=== PATIENT | female | born 1995 | race Caucasian/White ===

== ENCOUNTER → 2017-05-05 15:47 | Outpatient (CLI) | payer MEDICAID ==
[2017-05-05 17:46] LABS: APPEARANCE CLEAR (CLEAR); COLOR YELLOW (YELLOW); GLUCOSE NEGATIVE (NEGATIVE); LEUKOCYTE ESTERASE 1+ (NEGATIVE); NITRITE NEGATIVE (NEGATIVE); PROTEIN NEGATIVE (NEGATIVE)
[2017-05-05 17:47] LABS: BILIRUBIN NEGATIVE (NEGATIVE); KETONE NEGATIVE (NEGATIVE); RED CELLS - URINE 0-5 /hpf (0-5); UROBILINOGEN NORMAL (NORMAL)
[2017-05-05 17:48] LABS: BACTERIA MANY /hpf (NONE SEEN); MUCUS <1+ /lpf (NONE SEEN)
== END | disposition home or self-care (01) ==
LOC: D.LDO 15:47
PROVIDERS: Obstetrics & Gynecology
DX: O26.893 Other specified pregnancy related conditions, third trimester (principal); Z3A.35 35 weeks gestation of pregnancy; R10.9 Unspecified abdominal pain

== ENCOUNTER → 2017-05-19 00:52 | Outpatient (CLI) | payer MEDICAID ==
[2017-05-19 01:51] LABS: APPEARANCE CLEAR (CLEAR); BILIRUBIN NEGATIVE (NEGATIVE); COLOR YELLOW (YELLOW); GLUCOSE NEGATIVE (NEGATIVE); KETONE NEGATIVE (NEGATIVE); LEUKOCYTE ESTERASE NEGATIVE (NEGATIVE); NITRITE NEGATIVE (NEGATIVE); PROTEIN NEGATIVE (NEGATIVE); UROBILINOGEN NORMAL (NORMAL)
== END | disposition home or self-care (01) ==
LOC: D.LDO 00:52
PROVIDERS: Obstetrics & Gynecology
DX: O26.893 Other specified pregnancy related conditions, third trimester (principal); Z3A.37 37 weeks gestation of pregnancy

== ENCOUNTER → 2017-05-24 20:51 | Outpatient (CLI) | payer MEDICAID ==
[2017-05-24 21:56] LABS: APPEARANCE HAZY (CLEAR); BILIRUBIN NEGATIVE (NEGATIVE); COLOR YELLOW (YELLOW); GLUCOSE NEGATIVE (NEGATIVE); KETONE MODERATE mg/dL (NEGATIVE); LEUKOCYTE ESTERASE 2+ (NEGATIVE); NITRITE NEGATIVE (NEGATIVE); PROTEIN NEGATIVE (NEGATIVE); SPECIFIC GRAVITY 1.015 (1.005-1.020); UROBILINOGEN NORMAL (NORMAL)
[2017-05-24 21:57] LABS: BACTERIA MANY /hpf (NONE SEEN); MUCUS <1+ /lpf (NONE SEEN); RED CELLS - URINE OCC /hpf (0-5)
== END | disposition home or self-care (01) ==
LOC: D.LDO 20:51
PROVIDERS: Obstetrics & Gynecology
DX: O26.893 Other specified pregnancy related conditions, third trimester (principal); Z3A.38 38 weeks gestation of pregnancy

== ENCOUNTER 2017-05-31 05:11 | Inpatient (IN) | payer MEDICAID ==
[2017-05-31 07:03] LABS: HEMATOCRIT 36.3 % (36.0-48.0); HEMOGLOBIN 12.3 g/dL (12-16); MCH 30.3 pg (26.0-34.0); MCHC 33.9 g/dL (31.0-37.0); MCV 89.4 fL (80.0-100.0); MEAN PLATELET VOLUME 11.7 fL (7.4-10.4); RBC 4.06 10x6/uL (4.00-5.40); RDW 13.1 % (11.5-14.5); WBC 12.5 10x3/uL (4.8-10.8)
[2017-05-31 07:07] VITALS: BP 119/68; BMI 40.5
[2017-05-31] MEDS ORDERED: PRENATAL COMPLE1 TAB PO (07:07)
[2017-05-31 07:09] VITALS: BP 119/68; BMI 40.5
[2017-05-31 07:21] LABS: APPEARANCE HAZY (CLEAR); BILIRUBIN NEGATIVE (NEGATIVE); COLOR YELLOW (YELLOW); GLUCOSE NEGATIVE (NEGATIVE); KETONE NEGATIVE (NEGATIVE); NITRITE NEGATIVE (NEGATIVE); PROTEIN NEGATIVE (NEGATIVE); UROBILINOGEN NORMAL (NORMAL)
[2017-05-31 08:54] LABS: UDS - AMPHET NEGATIVE QUAL (NEGATIVE); UDS - BARB NEGATIVE QUAL (NEGATIVE); UDS - BENZO NEGATIVE QUAL (NEGATIVE); UDS - COCAINE NEGATIVE QUAL (NEGATIVE); UDS - OPIATE NEGATIVE QUAL (NEGATIVE); UDS - PCP NEGATIVE QUAL (NEGATIVE); UDS - THC NEGATIVE QUAL (NEGATIVE)
[2017-06-01] VITALS (15 sets, daily range): BP systolic 104–155; BP diastolic 7–90
--- NOTE | 2017-06-01 01:16 | NUR ---
TABLE GAMES DEALER TO NURSES STATION, REPORTS BEING UNABLE TO FIND FUNDUS. THIS RN TO BESIDE IN RECOVERY ROOM. FUNDUS WITH RIGHT SHIFT, UU WITH NO LOCHIA INITIALLY TO PERIPAD. BLADDER SLIGHTLY DISTENDED, HUTTON UNDER LEFT LEG, BLADDER DRAINED. DR. RAYGOZA RECHECKED, FIRM UU FOLLOWING DRAINING BLADDER.
--- NOTE | 2017-06-01 01:30 | NUR ---
PT TRANSFERRED FROM RECOVERY ROOM TO ROOM 1274. DR. OLIVERA AT BEDSIDE, PALPATING FUNDUS. DR. OLIVERA PERFORMS PELVIC EXAM WITH LARGE AMT RUBRA LOCHIA RETURNED, NO CLOTS.
--- NOTE | 2017-06-01 01:34 | NUR ---
DR. OLIVERA AT REMAINS AT BEDSIDE. B/P ELEVATED, PAIN 9/10 AT THIS TIME. MD AWARE. PERIPAD SATURATED AND CHANGED. TOWELS AND CHUX CHANGE. PERINUM CLEASED, AND CLEAN PERIPAD APPLIED. 450 MLS CLEAR LIGHT YELLOW URINE EMPTIED FROM UROMETER. V/O REC'D TO BOLUS PT WITH LEARNING DISABILITIES TEACHER AT THIS TIME. NS WITH 20 UNITS PIT TO PUMP AT 125 MLS PER HOUR. DILUADAD LEARNING DISABILITIES TEACHER INITIATED WITH 0.4 MG BOLUS GIVEN PER V/O. RESPIRATION REGULAR AND UNLABORED, BREATH SOUNDS CLEAR AND EQUAL. NO BOWEL SOUNDS PRESENT AT THIS TIME. ICE CHIPS GIVEN. FAMILY ALLOWED TO COME TO ROOM TO VISIT WITH PT. PT REQUESTS TO SEE INFANT JESSICA D/T NOT "REMEMBERING SEEING IN OR." PT AND S/O INSTRUCTED ON USE OF LEARNING DISABILITIES TEACHER BUTTON, VERBALIZE UNDERSTANDING. BED IN LOW POSITION WITH UPPER SIDE RAILS RAISED X2. CL AND PHONE WITHIN REACH. WILL CONT TO MONITOR AND ASSIST PRN.
--- NOTE | 2017-06-01 02:05 | NUR ---
ICE CHIPS GIVEN PER PT REQUEST. DEVANG VANEGAS RN TO ROOM WITH FOR BONDING WITH PT. DENIES NEEDS AT THIS TIME. WILL CONT TO MONITOR AND ASSIST PRN. FAMILY MEMBERS AND S/O AT BEDSIDE, ATTENTIVE AND SUPPORTIVE OF PT. BED IN LOW POSITION WITH UPPER SIDE RAILS RAISED X2. EDUCATED PT AND VISITORS ON SAFETY WITH IF PT BEGINS TO FEEL DROWSY OR DIZZY, VERBALIZES UNDERSTANDING AND DENY QUESTIONS. CL AND PHONE WITHIN REACH. WILL CONT TO MONITOR AND ASSIST PRN.
--- NOTE | 2017-06-01 02:43 | NUR ---
RN TO BEDSIDE. 500 MLS CLEAR LIGHT YELLOW URINE EMPTIED FROM HUTTON CATH. FUNDUS FIRM, U1 AND MIDLINE WITH SMALL AMT RUBRA LOCHIA TO PERIPADS. PERICARE DONE. TOWEL, CHUX, AND PERIPAD CHANGED. PAIN 3-4/10 ABD CRAMPING AND SORENESS. PT WITH FULL ROM TO BLE. SCD'S REMAIN ON. SPRITE GIVEN PER REQUEST, TOLERATED ICE CHIPS WELL WITH NO C/O NAUSEA. S/O AND VISITORS AT BEDSIDE, PT CONVERSING WITH THEM AT THIS TIME. DENIES ADDITIONAL NEEDS. BED IN LOW POSITION WITH UPPER SIDE RAILS RAISED X2. CL AND PHONE WITHIN REACH. WILL CONT TO MONITOR AND ASSIST PRN.
--- NOTE | 2017-06-01 03:25 | NUR ---
PT CALLS VIA CL. STATES THAT BED KEEPS JERKING AND GOING UP AND DOWN WHEN SHE HASN'T HIT THE BUTTON, BED NOTED TO SELF ADJUST. PT WITH FULL ROM TO BLE. PT ASSISTED WITH MOVING TO NEW BED BY SCOOTING OVER. WHEN IN NEW BED B/P ELEVATED AT 155/75, PT RATES PAIN AT 7-8/10 FOLLOWING BED TRANSFER. PT USED ENCEPHALOGRAPHER BUTTON. NEW ICE PACK APPLIED TO INCISION. DRSG REMAINS CLEAN, DRY, AND INTACT, NO DRAINAGE NOTED. S/O REMAINS AT BEDSIDE, ATTENTATIVE AND SUPPORTIVE OF PT. S/O PROVIDED WITH LINENS. PERICARE DONE, FUNDUS REMAINS FIRM, U1 WITH MODERATE AMT RUBRA LOCHIA TO PERIPAD, NO CLOTS. BED IN LOW POSITION WITH UPPER SIDE RAILS RAISED X2. CL AND PHONE WITHIN REACH. WILL CONT TO MONITOR B/P AND ASSIST PRN.
--- NOTE | 2017-06-01 03:40 | NUR ---
B/P 135/80, PT RESTING WITH EYES CLOSED AT THIS TIME. RESPIRATIONS REGULAR AND UNLABORED, NO S/S OF DISTRESS NOTED. S/O REMAINS AT BEDSIDE RESTING ON COUCH. BED REMAINS IN LOW POSITION WITH UPPER SIDE RAILS RAISED X2. CL AND PHONE WITHIN REACH. WILL CONT TO MONITOR AND ASSIST PRN.
--- NOTE | 2017-06-01 04:08 | NUR ---
INFANT TO ROOM BY DEVANG MURRY RN. PT ATTEMPTING TO BREAST FEED WITH Janett QUINTANA'S ASSISTANCE. PT DENIES NEEDS AT THIS TIME. WILL CONT TO MONITOR AND ASSIST PRN.
--- NOTE | 2017-06-01 04:58 | NUR ---
RN TO BEDSIDE FOR ROUNDS. PT SITTING IN HIGH FOWLERS POSITION BREAST FEEDING . 550 MLS CLEAR LIGHT YELLOW URINE EMPTIED FROM CATHETER. S/O AT BEDSIDE, SUPPORTIVE AND ATTENTIVE TO PT. PT STATES THAT SHE IS DROWSY, REINFORCED INSTRUCTION ON S/O TAKING IF DROWSY TO STAY AWAKE OR TO NOTIFY RN, BOTH VERBALIZE UNDERSTANDING. NBN RN TO BEDSIDE AT THIS TIME. B/P CUFF REMOVED. PT DENIES NEEDS. WILL CONT TO MONITOR AND ASSIST PRN. BED IN LOW POSITION WITH UPPER SIDE RAILS RAISED X2. CL AND PHONE WITHIN REACH. WILL CONT TO MONITOR AND ASSIST PRN.
--- NOTE | 2017-06-01 06:04 | NUR ---
RN TO BEDSIDE FOR ROUNDS. PT IN HIGH FOWLERS POSITION. TAKEN BACK TO NBN PER PT REQUEST. VSS. PULSE COUNTED MANUALLY, HR: 98. FUNDUS FIRM, U1 WITH SMALL AMT RUBRA LOCHIA TO PERIPAD, NO CLOTS NOTED. PERICARE AND HUTTON CARE DONE. CHUX AND PERIPADS CHANGED. 250 MLS EMPTIED FROM HUTTON, CLEAR LIGHT YELLOW. PAIN 3/10 ABD CRAMPING, STATES SPORTS WRITER IS CONTROLLING PAIN WELL. DRSG TO ABD REMAINS CLEAN, DRY, AND INTACT WITH NO DRAINAGE. INCENTIVE SPIROMETER USED X10 BY PT, COUGH AND DEEP BREATHING DONE WITH GOOD EFFORT. S/O REMAINS AT BEDSIDE, SUPPORTIVE AND ATTENTIVE TO PT. BED IN LOW POSITION WITH UPPER SIDE RAILS RAISED X2. CL AND PHONE WITHIN REACH. WILL CONT TO MONITOR AND ASSIST PRN.
[2017-06-01 07:24] LABS: RAPID PLASMA REAGIN Non Reactive (Non Reactive)
[2017-06-01 07:31] LABS: BASOPHILS 0.1 % (0-2); EOSINOPHILS 0 % (0-7); HEMATOCRIT 30.5 % (36.0-48.0); HEMOGLOBIN 10.5 g/dL (12-16); IMMATURE GRANULOCYTES 0.3 % (0-5); LYMPHOCYTES 7.5 % (15-50); MCH 30.7 pg (26.0-34.0); MCHC 34.4 g/dL (31.0-37.0); MCV 89.2 fL (80.0-100.0); MEAN PLATELET VOLUME 11.6 fL (7.4-10.4); MONOCYTES 6.1 % (2-11); PLATELET COUNT 157 10x3/uL (130-400); RBC 3.42 10x6/uL (4.00-5.40)
[2017-06-01 07:38] LABS: WBC 17.4 10x3/uL (4.8-10.8)
--- NOTE | 2017-06-01 08:00 | NUR ---
THIS RN TO ROOM FOR SHIFT ASSESSMENT. PT IN FOWLERS POSITION, AAOx3. PT RATING PAIN 5/10 AT REST,STATES IT IS WORSE WITH MOVEMENT. FACULTY INSTRUCTOR BUTTON GIVEN TO PT AND PT ENCOURAGED TO USE NEEDED. PT PRESSES FACULTY INSTRUCTOR BUTTON. SHIFT ASSESSMENT COMPLETE, VS OBTAINED, TACHYCARDIA NOTED. SEE FLOWSHEET FOR DOC. PIV INFUSING TO LEFT WRIST IV, C/D/I, NO SIGNS OF PHLEBITIS OR INFILTRATION. OCCLUSIVE ABD DSG OVER LT INCISION C/D/I. FF, ML, U/2. SMALL RUBRA LOCHIA NOTED TO PERIPAD WITHOUT CLOTS, PAD CHANGED. HUTTON CATH DRAINING CLEAR YELLOW URINE TO BEDSIDE DRAINAGE. 400ML EMPTIED FROM UROMETER. SCD'S ON PUMP TO LE BILAT. I.S. AND COUGH/DEEP BREATHING DISCUSSED WITH PT, UNDERSTANDING VERBALIZED AND PT DOES DEEP BREATHING WITH GOOD EFFORT. PT DENIES FEELING DIZZY OR LIGHTHEADED. PT ALSO DENIES NAUSEA AND STATES SHE IS TOLERATING LIQUIDS WELL. PT DENIES PASSING GAS YET. POC DISCUSSED WITH PT. UNDERSTANDING VERBALIZED. PT REQUEST FOR TO BE BROUGHT TO ROOM FOR SKIN TO SKIN WHEN POSSIBLE. WILL CHECK WITH NSY. SRUx2, CL IN REACH.
--- NOTE | 2017-06-01 08:03 | NUR ---
FRESH ICE WATER PROVIDED, NEW ICE PACK TO ABD INCISION.
--- NOTE | 2017-06-01 08:15 | NUR ---
DR OLIVERA PHONED AND REPORT GIVEN. ORDER RECEIVED FOR EKG, CT OF LUNGS TO R/O PE, ONLY ADMIN 1 DOSE OF SCHEDULED PO METHERGINE NOW, AND 30MG TORADOL IV Q6 PRN FOR PAIN. WILL UPDATE PT ON POC.
--- NOTE | 2017-06-01 08:55 | NUR ---
PT UPDATED ON POC AND NEW ORDERS FROM DR OLIVERA. PT VERBALIZES UNDERSTANDING. PO METHERGINE ADMIN ORDERED, WELL TORADOL FOR PAIN. PT RATING PAIN 8/10 WITH MOVEMENT AT THIS TIME. PT ASSISTED TO POSITIONING INFANT TO LATCH FOR BF. PT DENIES FURTHER NEEDS AT THIS TIME. SRUx2, CL IN REACH. FOB AT BEDSIDE.
--- NOTE | 2017-06-01 09:30 | NUR ---
PT C/O "FEELING HOT AND SWEATY". ROOM TEMP DECREASED, COOL CLOTH PROVIDED FOR NECK/FACE. AX TEMP OF 99.O NOTED. PT DENIES SOB. WILL CONT TO MONITOR.
--- NOTE | 2017-06-01 09:34 | NUR ---
PT TO CT VIA BED WITH TRANSPORT/CT STAFF.
--- NOTE | 2017-06-01 10:00 | NUR ---
PT BACK FROM CT VIA BED TO ROOM 1274 AT 0955. VS OBTAINED, SEE FLOWSHEET FOR DOC. 180ML CLEAR YELLOW URINE EMPTIED FROM UROMETER. PT STATES SHE WANTS TO TRY TO TAKE A NAP BEFORE IT IS TIME FOR INFANT TO FEED AGAIN. LIGHTS DIMMED. SRUx2, CL IN REACH. FOB ON BEDSIDE COUCH.
--- NOTE | 2017-06-01 10:13 | NUR ---
PT CALLS OUT SHEET METAL WORKER MAINTENANCE LIGHT REQUESTING INFANT TO ROOM SHE HAS VISITORS. TO ROOM VIA CRIBETTE. NEW BAG PIT HUNG PER ORDER, SEE EMAR FOR DOC. PT DENIES FURTHER NEEDS, STATES SHE IS STARTING TO FEEL COOLER. SRUx2, CL IN REACH. WILL CONT TO MONITOR.
--- NOTE | 2017-06-01 10:56 | NUR ---
CT REP0RT CALLED TO THIS RN FROM [facility] IN [place], REPORT PRINTED. WILL NOTIFY MD OF NO ACUTE FINDINGS.
--- NOTE | 2017-06-01 10:57 | NUR ---
RT PAGED CONCERNING EKG NOT DONE, LUCITA STATES SHE WILL HAVE SOMEONE COME DO IT JESSICA.
--- NOTE | 2017-06-01 11:10 | NUR ---
RT TO ROOM AT THIS TIME FOR EKG.
--- NOTE | 2017-06-01 11:40 | NUR ---
DR OLIVERA PHONED WITH REPORT OF CT AND EKG RESULTS WELL RECENT VITALS AND PAIN RATINGS. DR OLIVERA STATES THAT HE ORDERED 14OO CBC, AND HE WILL AWAIT RESULTS OF THAT TO DETERMINE FURTHER ORDERS. DR OLIVERA STATES SHE MAY CONTINUE TO REST AT THIS TIME, DOES NOT HAVE TO AMBULATE YET DUE TO LATE DELIVERY DURING NIGHT. WILL UPDATE PT ON POC.
--- NOTE | 2017-06-01 11:55 | NUR ---
PT UPDATED ON POC. PT REQUESTING TO EAT. DIET ADVANCED. PT INSTRUCTED TO EAT SLOWLY AND REPORT ANY NAUSEA. PT VERBALIZES UNDERSTANDING. 175ML EMPTIED FROM FOLY CATH, CLEAR YELLOW URINE. LUNCH DELIVERED. PT POSITIONED TO SITTING TO EAT. DENIES NEEDS. SRUx2, CL IN REACH. FAMILY IN ROOM.
--- NOTE | 2017-06-01 12:30 | NUR ---
THIS RN TO ROOM FOR PT CHECK. PT DENIES NAUSEA WITH MEAL, STATES SHE ATE HALF A SANDWICH AND DRANK A SPRITE. PT SMILING, VISITING WITH FAMILY, DENIES NEEDS. Tamra, CL IN REACH.
--- NOTE | 2017-06-01 13:15 | NUR ---
PT CALLS OUT PERSONAL FINANCIAL REPRESENTATIVE LIGHT FOR NURSE. THIS RN TO ROOM. PT STATES HER ICE PACK HAS LEAKED ON HER LINENS AND GOWN. LINENS AND GOWN CHANGED. FF, ML, U/2. SCANT RUBRA LOCHIA WITHOUT CLOTS NOTED. PERICARE DONE, PAD CHANGED. NEW ICE PACK APPLIED TO ABD INCISION. PT STATES PAIN "IS ABOUT THE SAME IT HAS BEEN ALL DAY." PT POSITIONED TO SITTING TO BR , NSY RN TO ROOM AT THIS TIME TO ASSIST WITH LATCH. SRUx2, CL IN REACH. PT ENCOURAGED TO REST AFTER THIS FEEDING.
--- NOTE | 2017-06-01 15:08 | NUR ---
PT CALLS OUT PICKLE SORTER LIGHT FOR NURSE, THIS RN TO ROOM. PT STATES SHE WAS WONDERING WHEN LAB WAS GOING TO COME DRAW HER BLOOD. LAB PHONED AND NOTIFIED OF TIMED ORDER FOR 1400, STATE THEY WILL SEND SOMEONE DOWN. PT INFORMED. 225ML DARK YELLOW URINE EMPTIED FROM UROMETER. PT C/O PAIN BEING "ABOUT THE SAME." PT RATES PAIN 4-5 AT REST, BUT 7-8 WITH MOVEMENT. PT ADMIN PRN TORADOL ORDERED, SEE EMAR FOR DOC. PT ENCOURAGED TO REST, AND THIS RN WILL ASSIST HER WITH AMBULATING WHEN TORADOL HAS PAIN LEVEL LOWER, WITHIN NEXT HOUR. LIGHTS IN ROOM DIMMED. SRUx2, CL IN REACH. FAMILY ON BEDSIDE COUCH. WILL CONT TO MONITOR.
--- NOTE | 2017-06-01 15:11 | NUR ---
LAB STAFF DRAWING LABS AT THIS TIME.
[2017-06-01 15:21] LABS: BASOPHILS 0.1 % (0-2); EOSINOPHILS 0 % (0-7); HEMATOCRIT 28.2 % (36.0-48.0); HEMOGLOBIN 9.5 g/dL (12-16); IMMATURE GRANULOCYTES 0.2 % (0-5); LYMPHOCYTES 6.2 % (15-50); MCH 30.3 pg (26.0-34.0); MCHC 33.7 g/dL (31.0-37.0); MCV 89.8 fL (80.0-100.0); MEAN PLATELET VOLUME 11.2 fL (7.4-10.4); MONOCYTES 6.1 % (2-11); NEUTROPHILS 87.4 % (40-80); PLATELET COUNT 127 10x3/uL (130-400); RBC 3.14 10x6/uL (4.00-5.40); RDW 13.2 % (11.5-14.5); WBC 14.5 10x3/uL (4.8-10.8)
--- NOTE | 2017-06-01 16:15 | NUR ---
DR OLIVERA GIVEN RESULTS FROM ORDERED CBC AND HR, ORDER RECEIVED TO TRANSFUSE [address] OLIVERA STATES TO D/C IV MEDS, COMPLETE TRANSFUSION BEFORE AMBULATING, AND IF TACHYCARDIA HAS NOT RESOLVED, TO CHECK 2 HOUR POST TRANSFUSION CBC. ORDER RECEIVED FOR PO PAIN MEDS NORCO 10/325 PO Q4H PRN, AND IBUPROFEN 600MG PO Q6H PRN. WILL UPDATE PT ON POC.
--- NOTE | 2017-06-01 17:15 | NUR ---
BLOOD TRANSFUSION STARTED AND WITNESSED WITH SHERYL MANTILLA. SEE PAPER TRANSFUSION FLOWSHEET FOR DOC AND VITALS.
--- NOTE | 2017-06-01 17:45 | NUR ---
PT REQUESTS PERICARE. PERICARE DONE, BED PADS AND PERIPADS CHANGED. NEW ICE PACK TO INCISION. PT DENIES FURTHER NEEDS AT THIS TIME. SRUx2, CL IN REACH. FAMILY IN ROOM.
--- NOTE | 2017-06-01 18:25 | NUR ---
PT C/O INCREASING PAIN AT INCISION, PRN PAIN MEDS ADMIN ORDERED, SEE EMAR FOR DOC. FRESH ICE WATER PROVIDED. PT DENIES FURTHER NEEDS, EATING SOME FOOD FROM DINNER TRAY. PT INSTRUCTED TO REPORT ANY NAUSEA, UNDERSTANDING VERBALIZED.
--- NOTE | 2017-06-01 18:47 | NUR ---
THIS RN TO ROOM. HUTTON BAG EMPTIED. PT DENIES ANY NEEDS, SMILING AND VISITING WITH FAMILY. SRUx2, CL IN REACH.
--- NOTE | 2017-06-01 19:20 | NUR ---
AT PRESENT. BLOOD INFUSION COMPLETED. 225CC NOTED IN HUTTON CATH. SCDS ON AND PUMP FUNCTIONAL. IV OF NS USED TO CLEAR IV LINE OF BLOOD. INFORMED PT. WOULD COMPLETE ASSESSMENT WHEN IS COMPLETED.
--- NOTE | 2017-06-01 19:55 | NUR ---
COMPLETED . PT. CHEERFUL. IV TUBING CLEARED OF BLOOD AND IV OF NS CONVERTED TO SALINE LOCK. POC EXPLAINED TO PT. PT. AGREEABLE. BREATH SOUNDS CLEAR AND BOWEL SOUNDS AUDIBLE. VITAL SIGNS OBTAINED.
--- NOTE | 2017-06-01 20:05 | NUR ---
HUTTON CATH. DISCONTINUED WITH 175CC NOTED IN METER. SCDS OFF AND WRAPS OFF PT. LEGS. NO EVIDENCE OF REDNESS NOR C/O PAIN. RATES INCISIONAL PAIN A 4 OF 10. USED INCENTIVE SPIROMETER WITH ENCOURAGEMENT X 3 AND OBTAINED UP TO 1500CC. DEEP BREATHING AND COUGHING DONE. NO REDNESS AT IV SITE. SIDE RAILS UP X 2. INFORMED PT. THAT SHE MUST CALL FOR ASSISTANCE PRIOR TO ATTEMPTING TO AMBULATE. PT. STATED VERBAL UNDERSTANDING.
--- NOTE | 2017-06-01 21:09 | NUR ---
AT PRESENT. CHEERFUL AND DENIES ANY NEEDS. MOVING LEGS ABOUT IN BED. FOB AND VISITOR ON SOFA.
--- NOTE | 2017-06-01 22:31 | NUR ---
LYING IN BED HOLDING . STATES SHE PLANS TO FEED AGAIN AND THEN WOULD LIKE TAKEN TO NBN SO THEY CAN SLEEP UNTIL NEXT FEEDING. SCDS REAPPLIED. FOB LYING ON SOFA. VITAL SIGN ASSESSMENT PERFORMED. PT. RATES PAIN A 4 OF 10 ON PAIN SCALE FOR INCISIONAL PAIN. PAIN MED GIVEN ORDERED. PT. DOES NOT FEEL URGE TO VOID AT THIS TIME.
--- NOTE | 2017-06-01 23:09 | NUR ---
PT. CALLS REQUESTING BE RETURNED TO NBN. RATES PAIN A 3 OF 10 ON PAIN SCALE. FOB SWADDLING INFANT. PT. STATES SHE DESIRES TO SLEEP UNTIL INFANT NEED FED NEXT. AGAIN INSTRUCTED PT. TO CALL FOR ASSISTANCE WHEN SHE DESIRES TO GET UP TO VOID. PT. STATED UNDERSTANDING. SIDE RAILS UP X 2 AND CALL LIGHT WITHIN REACH. SCDS ON AND PUMP FUNCTIONAL.
--- NOTE | 2017-06-02 00:25 | NUR ---
STATES URGE TO VOID.UP TO BATHROOM WITH MINIMAL ASSISTANCE. VOIDED 500CC. DEBORAH PADS AND PANTIES APPLIED. LINENS AND GOWN CHANGED. BACK TO BED. SCDS RECONNECTED TO PUMP AND FUNCTIONAL. ABD. DRESSING DRY AND INTACT. PT. REQUESTING RETURN TO ROOM. FOB LYING ON THE SOFA BUT UP ON PHONE WHEN PT. AMBULATED TO BATHROOM. CALL LIGHT WITHIN REACH AND SIDE RAILS UP X 2.
--- NOTE | 2017-06-02 02:38 | NUR ---
PT RINGS CALL LIGHT REQUESTING PAIN MEDICATION. THIS RN TO BEDSIDE FORPAIN ASSESSMENT. PT REPORTS ABD CRAMPING AND INCISIONAL PAIN. PT REQUEST BOTH MOTRIN AND NORCO AT THIS TIME. NORCO 10/325MG ONE TAB AND MOTRIN 600MG PO GIVEN. PT DENIES FURTHER NEEDS AT THIS TIME.
--- NOTE | 2017-06-02 03:15 | NUR ---
LYING ON BACK WITH EYES CLOSED. RESPIRATIONS REGULAR. FOB SLEEPING ON SOFA.
--- NOTE | 2017-06-02 05:15 | NUR ---
UP TO BATHROOM AND VOIDED 500CC. GAIT STEADY. DEBORAH PADS AND PANTIES APPLIED. BACK TO BED AND SCDS RECONNECTED TO PUMP. REQUESTED TO ROOM. NBN INFORMED.
[2017-06-02 06:56] LABS: BASOPHILS 0.1 % (0-2); EOSINOPHILS 0.3 % (0-7); HEMATOCRIT 28.7 % (36.0-48.0); HEMOGLOBIN 9.6 g/dL (12-16); IMMATURE GRANULOCYTES 0.4 % (0-5); LYMPHOCYTES 12.5 % (15-50); MCH 29.5 pg (26.0-34.0); MCHC 33.4 g/dL (31.0-37.0); MCV 88.3 fL (80.0-100.0); MEAN PLATELET VOLUME 10.9 fL (7.4-10.4); MONOCYTES 6.3 % (2-11); NEUTROPHILS 80.4 % (40-80); PLATELET COUNT 146 10x3/uL (130-400); RBC 3.25 10x6/uL (4.00-5.40); RDW 14.5 % (11.5-14.5); WBC 15.7 10x3/uL (4.8-10.8)
[2017-06-02 07:35] VITALS: BP 116/63
--- NOTE | 2017-06-02 07:45 | NUR ---
ASSESSMENT COMPLETE. SITTING UP IN BED. PAIN MED GIVEN. VERBAL RESPONSES APPRO TO QUESTIONS. STATES THAT UP TO BATHROOM NEEDED. STATES THAT NOT PASSING GAS. ENCOURAGED TO AMBULATE MORE TODAY. FAMILY AT BEDSIDE.
--- NOTE | 2017-06-02 08:05 | NUR ---
DR OLIVERA HERE TO SEE PT.
--- NOTE | 2017-06-02 09:08 | NUR ---
Corine Myers 06/02/17 LE@ 8:30 S: Patient states is going good; baby sometimes tends to fuss when it's time for feeding, making it harder to latch him, and has been using a nipple shield unsure if using correctly. O: Patient sitting up in bed watching television, FOB sleeping on sofa, in nursery. Congratulated on delivery, does take time and patience in the beginning. Explained feeding cues, infant should be fed on demand when showing feeding cues. It is normal for a breastfed to feed every 2-3 hours in the day and 3-4 hours at night, every baby is different. How long latches can vary per . Explained breastmilk composition, supply and demand what baby takes out, our bodies will make more of. Encouraged to continue to latch for every feeding. Explained position, what to expect the first week, how to verify is latched correctly to the breast, and benefits of skin to skin. Showed how to correctly apply nipple shield for feeding, had patient apply nipple shield, verified patient is aware how to use correctly. Asked if any questions or concern, patient states no, thanked LC for. Nursery nurse came in room with , fussy, time for feeding, LC offered to help with latching . Explained to turn baby tummy to tummy, nose opposite of nipple, directly in front of breast, and allow infant to self-latch. Patient applied nipple shield and infant was latched on the left breast, in football position. latched at 8:53, round cheeks, mouth 140 degree, sucking in a rocking motion, and observed infant removing milk from the breast. Both mother and infant appear content with feeding. Patient states she feeds better with latching . Praised for , encouraged to continue to feed on demand, please ask for help as needed. A: Helped patient with latching infant. P: Continue to support exclusively . Bryant Avila, CLC
--- NOTE | 2017-06-02 10:17 | NUR ---
RINGS CALL LIGHT- REQUESTING IBUPROFEN. STATES THAT IS PASSING GAS.
--- NOTE | 2017-06-02 11:30 | NUR ---
UP TO SHOWER- TOLERATED WELL. LINENS CHANGED.
--- NOTE | 2017-06-02 11:50 | NUR ---
noted small area of blood- on lt side of incision while pt drying off. pad placed sideway and instructed pt on keeping incision clean and dry. mirtha intact- no s/s of infection noted.
--- NOTE | 2017-06-02 12:32 | NUR ---
RINGS CALL LIGHT- REQUESTING PAIN MEDICATION. RATES PAIN A 7 ON SCALE OF 0-10. STATES IS PASSING SOME FLATUS.
--- NOTE | 2017-06-02 12:56 | OP ---
PATIENT NAME: UMM FISHER MEDICAL RECORD: [id number] :97 LOCATION:[id number] ADMISSION DATE:05/31/17 SURGEON: TJ RICARDO MD DATE OF OPERATION: 06/01/2017 PREOPERATIVE DIAGNOSES: 1. Term intrauterine at 39 weeks. 2. Induction of labor with arrest of descent/dilation. POSTOPERATIVE DIAGNOSES: 1. Term intrauterine at 39 weeks. 2. Induction of labor with arrest of descent/dilation. PROCEDURE: Primary low transverse section with vacuum assistance. SURGEON: Tj Ricardo MD. ESTIMATED BLOOD LOSS: 1200 cc. INTRAVENOUS FLUIDS: Per anesthesia record. ANESTHESIA: Via epidural. FINDINGS: 1. Grossly normal appearing male infant, Apgars 9 at 1 and 9 at 5. 2. Placenta delivered manually intact, 3-vessel cord noted. 3. Uterine atony. 4. Normal appearing bilateral adnexa. SPECIMENS: Placenta and cord for gases. COMPLICATIONS: None apparent. PROCEDURE IN DETAIL: The patient was taken to the operating room where epidural anesthesia was achieved without difficulty. The patient was then prepped and draped in normal sterile fashion in the dorsal supine position. A Martinez catheter had been placed and was draining freely. SCDs were on and functioning appropriately. At this point, after prepping and draping, a Pfannenstiel skin incision was made, extended downward to the underlying subcutaneous fat to level of the fascia. The fascia was then excised in the midline with a scalpel and excised bilaterally using the Coughlin scissors. The superior and inferior aspects of the fascial incision were then grasped with Gavino clamps times 1, tented upward, and sharply dissected from the underlying rectus muscle. Rectus muscle was then bluntly in the midline. The midline raphae of the pyramidalis muscle was in the midline using the Metzenbaum scissors. The peritoneum was then entered sharply at the superior aspect of the incision. Peritoneal incision extended using the Metzenbaum scissors. A bladder blade was then placed into the pelvis. A bladder flap was made by excising the anterior leaf of the broad ligament across the lower uterine segment using the Metzenbaum scissors. A low transverse incision was then made with scalpel and extended superiorly and inferiorly using the Pelosi method. The infant's head was found to be extended. A vacuum was placed on the occiput 1 application, 0 pop off, and correction of head flexion resulting in delivery of the head. Following the flexion with the vacuum of the head, no traction was placed on the neck. The vacuum was then removed and the infant was delivered OPERATIVE REPORT [id number] UMM FISHER atraumatically. was bulb suctioned upon delivery. The cord was clamped times 2, cut, and the was handed to the awaiting nursery team. Placenta was then manually removed. The uterus was then exteriorized and found to be extremely atonic. The uterus was cleared of all clots and debris and vigorous massage was performed while holding pressure of the uterine incision. The patient was given IM Hemabate 250 mcg with IM Methergine 0.2 mg and massage continued until good hemostasis was noted. Uterine incision was then repaired with 0 Vicryl in a running locked fashion times 2 with several areas oversewn with 2-0 Vicryl. Posterior cul-de-sac was then irrigated and the uterus was replaced into the pelvis. The anterior cul-de-sac was irrigated and then FloSeal was placed on the uterine incision. Counts were correct times 2. The fascia was repaired with 0 loop PDS times 1 and the skin repaired with mirtha. The patient tolerated the procedure well, transferred to postanesthesia recovery stable without incident. TRANSINT:[id number] Voice Confirmation ID: [id number] DOCUMENT ID: [id number] TJ RICARDO MD at 1256 CC: [id number] DICTATION DATE: 06/01/17 0126 SENIOR ENGINEERING ASSOCIATE: 06/01/17 0557 [facility] [address] [place] [address]
--- NOTE | 2017-06-02 13:00 | NUR ---
pt served warm tea. also encouraged to lay on lt side as much as possible.
--- NOTE | 2017-06-02 13:00 | NUR ---
again looked at incision- no bleeding noted. incision appearance wnl.
[2017-06-02 14:00] VITALS: BP 134/73
--- NOTE | 2017-06-02 14:00 | NUR ---
vs done- baby at breast. states will call on light when able to walk around unit.
--- NOTE | 2017-06-02 14:45 | NUR ---
ambulating in hallways. tolerated well. pt states she is passing gas more this afternoon.
--- NOTE | 2017-06-02 16:37 | NUR ---
PT C/O INCISIONAL PAIN OF "8" ON 0-10 PAIN SCALE. MOTRIN 600 MG AND NORCO 10/325 GIVEN PER PT REQUEST FOR C/O PAIN. PT INSTRUCTED ON MEDS.
--- NOTE | 2017-06-02 18:00 | NUR ---
infant at breast. pt states that she is passing flatus. states she has been up and about in room. denies needs. states that pain is better- rates pain a 3 after last pain medication.
[2017-06-02 19:36] VITALS: BP 119/60
--- NOTE | 2017-06-02 19:36 | NUR ---
SITTING UP IN BED WITH HOB AT 45 DEGREES. VISITORS IN ROOM. FOB TENDING TO INFANT WHICH IS IN OPEN CRIB. PT. CHEERFUL. RELATES THAT SHE HAS BEEN WALKING TODAY. BREATH SOUNDS CLEAR AND BOWEL SOUNDS AUDIBLE. ABD. INCISION NOTED WITH RADHA AND DEBORAH PAD ON TOP . DISCUSSED WITH PT. CARE OF INCISION WHEN SHE DISCHARGES. PT. STATED UNDERSTANDING TO ALL. PT. REPORTS PASSING FLATUS. DENIES ANY PAIN IN LOWER EXTREMITIES. LOCHIA RUBRA SCANT.
--- NOTE | 2017-06-02 20:42 | NUR ---
ROUNDS MADE. PT DENIES NEEDS AT THIS TIME. FAMILY IN ROOM VISITING WITH PT.
--- NOTE | 2017-06-02 21:28 | NUR ---
ROUNDS MADE. PT LYING IN SEMI-VASQUEZ WITH INFANT UP IN ARMS. TEMP IN ROOM INCREASED DUE TO PT C/O BEING COLD. MEAL TRAY REMOVED FROM ROOM PER PT REQUEST. PT DENIES FURTHER NEEDS. WILL CONT TO MONITOR.
--- NOTE | 2017-06-02 22:31 | NUR ---
ROUNDS MADE. PT IN SEMI-VASQUEZ WITH INFANT UP IN ARMS. FOB SLEEPING ON BEDSIDE COUCH. PT DENIES NEEDS AT THIS TIME.
--- NOTE | 2017-06-03 00:24 | NUR ---
PT RINGS CL. RN TO BEDSIDE. PT REQUESTS & RECEIVES FRESH ICE WATER AND PT C/O PAIN 03/13. REQUESTS AND RECEIVES MOTRIN 600MG X1 TAB AND NORCO 10/325 X1 TAB. PT ALSO C/O IV HURTING. PIV D/C'D WITH CATH TIP INTACT. BANDAID PLACED OVER SITE. PT TOLERATED WELL. FOB ON BEDSIDE COUCH WITH UP IN ARMS AT THIS TIME. PT DENIES FURTHER NEEDS. WILL CONT TO MONITOR.
--- NOTE | 2017-06-03 01:08 | NUR ---
PAIN REASSESSMENT COMPLETE. PT RESTING ON BACK, EYES CLOSED, RESP EVEN & UNLABORED. FOB RESTING ON BEDSIDE COUCH. PT LEFT UNDISTURBED AT THIS TIME.
[2017-06-03 01:30] VITALS: BP 135/73
--- NOTE | 2017-06-03 01:30 | NUR ---
VITAL SIGN ASSESSMENT COMPLETED. PT. C/O FEELING COLD. DENIES FEELING ANY NEW SYMPTOMS. UP TO BATHROOM TO VOID. LT. LOWER EDGE OF INCISION NOTED WITH DRAINAGE. APPROX. 3CM AREA ABOVE INCISIONAL LINE WITH HARDNESS NOTED TO PALPATION. REMAINDER OF INCISIONAL AREA SOFT. LOCHIA RUBR SCANT TO MOD. AMB. WITH STEADY GAIT. INFORMED PT. WOULD RECHECK TEMP. IN 30 MINUTES.
--- NOTE | 2017-06-03 02:05 | NUR ---
TEMPERATURE RECHECKED WITHOUT CHANGE NOTED. BREATH SOUNDS CLEAR AND BOWEL SOUNDS AUDIBLE.
--- NOTE | 2017-06-03 02:14 | NUR ---
DR. OLIVERA CALLED AND INFORMED OF TEMP. ELEVATION, DRAINAGE OF INCISION AND HARDNESS NOTED ABOVE INCISION LINE. MD STATES WILL RETURN CALL WITH ORDERS.
--- NOTE | 2017-06-03 02:34 | NUR ---
SUPERINTENDENT GREENS CALLED AND INFORMED OF MED ORDER.
--- NOTE | 2017-06-03 03:12 | NUR ---
PT RINGS CL. RN TO BEDSIDE. PT INQUIRES IF SHE CAN HAVE INFANT IN ROOM DUE TO FEVER. ADV PT WILL CHECK WITH NBN. PT VERBALIZED UNDERSTANDING.
--- NOTE | 2017-06-03 03:12 | NUR ---
DEVANG DAY RN TO ROOM WITH INFANT VIA OPEN CRIB AT THIS TIME.
--- NOTE | 2017-06-03 04:00 | NUR ---
PT. JUST COMPLETED . EXCITED THAT LATCHED WITHOUT BREAST SHIELD. ANTIBIOTIC EXPLAINED TO PT. AND SHE STATES VERBAL UNDERSTANDING. IV STARTED WITH 20G CATHETER IN RT HAND ON FIRST ATTTEMPT. INFUSION BEGUN. TEMPERATURE CHECK PRIOR TO MED START WAS 99.0. PT. STATES THAT SHE IS FEELING MUCH BETTER AND STARTING SWEATING PRIOR TO FEEDING .
[2017-06-03 04:30] VITALS: BP 134/70
--- NOTE | 2017-06-03 04:30 | NUR ---
ANTIBIOTIC COMPLETED AND LINE FLUSHED WITH SALINE. IV CONVERTED BACK TO SALINE LOCK. PT. CHEERFUL AND STATES SHE FEELS "MUCH BETTER". VISITOR IN ROOM THAT BROUGHT FOOD FROM OUTSIDE. VITAL SIGNS OBTAINED. INFORMED PT. OF SCHEDULE FOR MEDS. PT. RELATES THAT SHE IS STILL WANTING TO GO HOME. VISITOR HOLDING . PT. STATES SHE IS GOING TO EAT BREAKFAST.
--- NOTE | 2017-06-03 06:10 | NUR ---
SITTING UP IN BED HOLDING AND VISITING WITH FAMILY MEMBER. RATES PAIN A 2 OF 10 ON PAIN SCALE. CHEERFUL.
--- NOTE | 2017-06-03 07:30 | NUR ---
ASSUMED CARE OF THIS PT. SITTING UP IN BED GETTING READY TO BREASTFEED INFANT. SHIFT ASSESSMENT COMPLETED. DISCUSSED LE EDEMA AND RELIEF MEASURES, ENCOURAGED OOB FREQUENTLY, AMBULATION AND ELEVATION OF FEET WHEN AT REST. PASSING FLATUS AND VOIDING WITHOUT DIFFICULTY. HYPOACTIVE BS AT PRESENT, ABDOMEN SOFT, SLIGHT TENDERNESS AT INCISION SITE. SCD'S NOT IN PLACE DUE TO BEING UP AD ROGELIO. NO REQUESTS AT THIS TIME. IN ARMS, REGULAR DIET AT BEDSIDE. PLANS TO EAT AFTER . CALL LIGHT IN REACH. SIDE RAILS UP. TO CALL IF ANYTHING IS NEEDED.
[2017-06-03 07:35] VITALS: BP 128/62
--- NOTE | 2017-06-03 08:55 | NUR ---
REQUESTED PAIN MEDICATION FOR INCISIONAL STINGING 03/13. STATES "I JUST GOT UP TO THE BATHROOM AND IT STARTED HURTING." NORCO 10 MG GIVEN PO FOR RELIEF. INFANT IN ARMS. REMINDED NOT TO SLEEP WITH IN BED. VERBALIZED UNDERSTANDING. SIDE RAILS UP X 2, CALL LIGHT IN REACH. CRIB PLACED AT BEDSIDE. VISITOR "STEP MOM" WILL BE BACK SOON.
--- NOTE | 2017-06-03 10:45 | NUR ---
ANTIBIOTIC INFUSION COMPLETED. FLUSED WITH NS VIA IV LINE. REQUESTED TO GET UP TO SHOWER. /10 INCISIONAL STINGING PAIN. IV LINE DC'D. ASSISTED UP TO SHOWER. TO NURSERY.
--- NOTE | 2017-06-03 11:10 | NUR ---
LINEN CHANGED COMPLETED. SHOWER COMPLETED, ASSISTED WITH DRYING INCISION. RADHA INTACT, NO DRIED BLOOD NOTED. SMALL RAISED AREA, APPROX 1 CM IN DIAMETER NOTED ABOVE LEFT SIDE OF INCISION. NO DRAINAGE NOTED. LOCHIA SCANT. DISCUSSED KEEPING INCISION CLEAN AND HOW TO DRY. CLEAN DEBORAH-PAD PLACED BETWEEN INCISION AND UNDERWEAR. PLANS TO AMBULATE.
[2017-06-03 11:27] VITALS: BP 129/71
--- NOTE | 2017-06-03 11:32 | NUR ---
AMBULATED FROM NURSERY BACK TO ROOM WITH INFANT IN STROLLER. DENIES NEEDING ANYTHING AT THIS TIME. SIDE RAILS UP X 2, CALL LIGHT IN REACH. VISITOR SLEEPING ON COUCH. INFANT IN ARMS. TO CALL IF ANYTHING IS NEEDED.
--- NOTE | 2017-06-03 13:06 | NUR ---
REQUESTED PAIN MEDICATION FOR 7/10 INCISIONAL PAIN. NORCO 10 MG GIVEN PO FOR RELIEF. INFANT TO NURSERY. SIDE RAILS UP X 2, CALL LIGHT IN REACH. NO ADDITIONAL REQUESTS.
--- NOTE | 2017-06-03 14:30 | NUR ---
AROUSED FROM SLEEP. 4/10 INCISIONAL PAIN, SAYS ITS GETTING BETTER. LIGHTS ON LOW, INFANT IN NURSERY. PLANS TO BREASTFEED AT 1500. SIDE RAILS UP X 2, CALL LIGHT IN REACH. TO CALL IF ANYTHING IS NEEDED.
[2017-06-03 16:31] VITALS: BP 116/65
--- NOTE | 2017-06-03 16:32 | NUR ---
SITTING UP IN BED TALKING ON PHONE. ANTIBIOTIC IVPB COMPLETED. LINE FLUSHED AND DC'D. SALINE LOCK REMAINS IN PLACE. IN ARMS. SIDE RAILS UP X 2, CALL LIGHT IN REACH. NO REQUESTS AT THIS TIME.
--- NOTE | 2017-06-03 18:25 | NUR ---
SITTING UP IN BED HOLDING . FRESH WATER GIVEN PER REQUEST. HAS NOT EATEN DINNER. NO OTHER REQUESTS AT THIS TIME. TO CALL IF ANYTHING IS NEEDED. VERBALIZED UNDERSTANDING.
--- NOTE | 2017-06-03 18:42 | NUR ---
REQUESTED PAIN MEDICATION FOR 04/13 "STINGING AND THROBBING" OF INCISION. INFANT IN ARMS . NORCO 10 MG GIVEN PO FOR RELIEF. SIDE RAILS UP, CALL LIGHT IN REACH. FOB PRESENT IN ROOM.
--- NOTE | 2017-06-03 19:13 | NUR ---
PM ASSESSMENT COMPLETE. POC DISCUSSED WITH PT. PAIN REASSESS PERFORMED. C/L IN REACH. BED LOW. SR UPX2. PT DENIES ANY OTHER NEEDS OR CONCERNS.
--- NOTE | 2017-06-03 21:34 | NUR ---
To room for med administration. Pt sitting up in bed talking with family. Denies any other needs at this time. IV flushed with saline. No redness/edema noted to site. IV patent. Medication started. C/L in reach. Bed low. SR upx2.
[2017-06-03 22:14] VITALS: BP 113/66
--- NOTE | 2017-06-03 22:16 | NUR ---
To room for VS. IV flushed with NS and saline locked. No redness/edema noted at site. Dressing c/d/i. Pt rating pain at 6/10. PRN pain medication administered as ordered. See emar. Pt given fresh ice water. No other needs voiced. C/L in reach. Bed low. SR upx2. Family at bedside.
--- NOTE | 2017-06-03 23:16 | NUR ---
Provided pt s/o with sprite and fresh ice water for pt.
--- NOTE | 2017-06-04 01:00 | NUR ---
Pt resting with eyes closed. Denies any needs. C/L in reach. Bed low. SR upx2.
--- NOTE | 2017-06-04 02:48 | NUR ---
Called to room by pt requesting prn pain med. Rating pain 6/10. Med administered as ordered. See emar. Provided fresh ice water. VS obtained. C/L in reach. Bed low. SR upx2. No other needs voiced.
[2017-06-04 02:50] VITALS: BP 118/55
--- NOTE | 2017-06-04 04:00 | NUR ---
Pt awake and alert. Fresh ice water provided. Denies any other needs/concerns. C/L in reach. Bed low. SR upx2.
--- NOTE | 2017-06-04 05:56 | NUR ---
Pt holding infant in arms. Reports no change in lochia and denies passing clots. Reports voiding with ease still. Denies pain. C/L in reach. Bed low. SR upx2.
--- NOTE | 2017-06-04 06:26 | NUR ---
Pt requests prn pain med. See EMAR for medical technologist clinical.
--- NOTE | 2017-06-04 07:14 | NUR ---
SITTING UP IN BED. VISITORS IN ROOM. DR OLIVERA VISITED PT. ANTICIPATE DC HOME TODAY WITH . NO REQUESTS AT PRESENT. LE ELEVATED ON PILLOWS. WILL COMPLETE SHIFT ASSESSMENT AFTER BREAKFAST.
[2017-06-04 07:19] VITALS: BP 124/70
--- NOTE | 2017-06-04 07:50 | NUR ---
SHIFT ASSESSMENT COMPLETED. DESIRES TDAP BEFORE GOING HOME. IN ARMS. FOB IN ROOM. NO REQUESTS AT THIS TIME. ENCOURAGED TO CONTINUE TO DRINK FLUIDS, ELEVATED LE, UP OOB AND AMBULATE FREQUENTLY. VERBALIZED UNDERSTANDING. SIDE RAILS UP X 2, CALL LIGHT IN REACH.
[2017-06-04] MEDS ORDERED: AUGMENTIN 875-11 TAB PO (09:14)
[2017-06-04] MEDS ORDERED: HYDROCODONE-APA1 TAB PO (09:15)
[2017-06-04] MEDS ORDERED: IBUPROFEN600 MG PO (09:15)
--- NOTE | 2017-06-04 09:47 | NUR ---
DESIRED TDAP AFTER REVIEWIND PATIENT EDUCATION MATERIALS. CONSENT OBTAINED. GIVEN IM RIGHT DELTOID WITHOUT DIFFICULTY. REQUESTED FRESH ICE WATER BUT DENIES NEEDING ANYTHING ELSE. READY TO GO HOME. WAITING ON DC OF INFANT. FOB SLEEPING ON COUCH, LIGHTS TURNED ON LOW. SIDE RAILS UP X 2, CALL LIGHT IN REACH. PLANS SHOWER AND GETTING DRESSED AFTER IVPB ANTIBIOTICS COMPLETE.
--- NOTE | 2017-06-04 11:56 | NUR ---
SALINE LOCK DC'D. VERBAL AND WRITTEN DISCHARGE TEACHING COMPLETED TO INCLUDE POST OP CARE, PP DEPRESSION, S&S INFECTION, /BREASTCARE, COMMUNITY RESOURCES, MEDICATION ADMINISTRATION, CAR SAFETY AND FOLLOW-UP. QUESTIONS ANSWERED. VERBALIZED UNDERSTANDING. PRESCRIPTIONS GIVEN FOR MOTRIN, NORCO AND AUGMENTIN. DISCUSSED ANTIBIOTIC THERAPY AND IMPORTANCE OF COMPLETION OF ENTIRE MEDICATION PRESCRIBED. VERBALIZED UNDERSTANDING. TO CALL TOMORROW TO SCHEDULE F/U WITH DR OLIVERA ON MONDAY. DR QUINTANA VISITED. CURRENTLY . WILL DC VIA W/C WHEN IS DC'D AND PATIENT IS READY TO BE DC'D.
--- NOTE | 2017-06-04 12:40 | NUR ---
DC'D VIA WHEELCHAIR. IN CAR SEAT. FOB AND VISITOR ASSISTING. ALL BELONGS REMOVED FROM ROOM. HAS DC INSTRUCTIONS AND PRESCRIPTIONS.
--- NOTE | 2017-07-04 09:56 | DS ---
PATIENT:UMM FISHER :89 MEDICAL RECORD: [id number] DISCHARGE SUMMARY ADMISSION DATE: 05/31/17 DISCHARGE DATE: 06/04/17 HOSPITAL COURSE: The patient was admitted on 05/31/2017. A 21-year-old G1, P0 at 39 weeks and 1 day, who was admitted for induction of labor per patient wishes. The patient was noted to be O positive, group B strep negative and rubella immune. PAST MEDICAL HISTORY: Noncontributory. PAST SURGICAL HISTORY: The patient reported no past surgeries. FAMILY HISTORY: The patient reported no significant family history. SOCIAL HISTORY: Significant for tobacco and marijuana use. PHYSICAL EXAMINATION: VITAL SIGNS: On initial evaluation, the patient was reported to be normotensive and afebrile. Vital signs were stable. LUNGS: Clear to auscultation. CARDIOVASCULAR: Regular rate and rhythm. PELVIC: Uterus was appropriately sized and nontender. EXTREMITIES: Lower extremities were free of Homans sign. Initial evaluation with a category 1 tracing, 140 heart rate baseline with moderate variability. ASSESSMENT AND PLAN: At that time; 1. Term intrauterine at 39 weeks. 2. Induction of labor per the patient wishes. Risk and benefits were explained including increased risk of . 3. Positive tobacco. 4. Positive THC. The patient progressed to 4 cm. Artificial rupture of membranes was performed. Clear fluid was noted. An IUPC was placed and the patient remained with a category 1 tracing. The patient was continued on Pitocin when noted to have an arrest of dilatation and descent at 7 cm. This was discussed with the patient and the patient was consented for . Risks and benefits were explained. The patient voiced understanding and consent. Category 1 tracing at that time with decision to proceed with . Operative report is as dictated. The patient did well overnight on postop day #0, on Dilaudid PINION STAKER, IV Toradol for pain. The patient was continued on IV fluids and started on a clear liquid diet. Lower extremities; SCDs were on and functioning normally. Martinez catheter was kept overnight. The patient was with normal urine output. On the morning of postop day #1, status post low transverse section, the patient continued to do well. The patient had some episodes of tachycardia overnight, which were improving. A CT scan had been performed to rule out pulmonary embolus, which was negative. No evidence of arrhythmia was noted on the EKG. The patient had been transfused 1 unit of packed red cells. Incision was clean, dry and intact. The patient was reporting pain, moderately controlled. At this time, the Martinez catheter was discontinued. Ambulation was begun. The patient was started on p.o. pain meds. The patient continued to do well overnight on postop day #1. On the morning of postop day #2, the patient overnight had a DISCHARGE SUMMARY REPORT [id number] [facility] FISHER T-max of 100.6. On her exam, a small area of incisional erythema was noted. No purulence or discharge noted. The patient was started on Zosyn for presumptive endometritis versus cellulitis. The patient was kept overnight for observation, was tolerating p.o. pain meds and general diet. The patient was noted to be afebrile overnight on postop day #2. The morning of postop day #3, the area of mellissa-incisional erythema appeared stable. The patient was discharged home with augmentation with plans to follow up in 48 hours to evaluate the wound. No incisional induration or purulence was noted at that time. The fundus and the infraumbilical are nontender. The patient was discharged home on postop day #3. TRANSINT:[id number] Voice Confirmation ID: [id number] DOCUMENT ID: [id number] CAMPOS OLIVERA MD at [id number] CC: [id number] DICTATION DATE: 07/02/17 1339 PROVIDER SCRIBE: 07/03/17 0240 DIS IN 06/04/17 [place] [address]
== END 2017-06-04 12:40 | disposition home or self-care (01) | DRG 765 ==
LOC: D.LD 05:11
PROVIDERS: ADMIT Obstetrics & Gynecology
PROC: 10D00Z1 Extraction of Products of Conception, Low, Open Approach (ICD-10-PCS; principal; 2017-05-31 23:44)
DX: O62.1 Secondary uterine inertia (principal); O72.1 Other immediate postpartum hemorrhage; O99.334 Smoking (tobacco) complicating childbirth; Z37.0 Single live birth; Z3A.39 39 weeks gestation of pregnancy

== ENCOUNTER 2021-02-07 18:05 | Observation (INO) | payer OTHER ==
[~2021-02-07] VITALS: Ht 157.5 cm; Wt 111.4 kg
[2021-02-07 11:36] VITALS: BP 132/71
[~2021-02-07 18:05] MED LIST: AUGMENTIN 875-11 TAB PO; HYDROCODONE-APA1 TAB PO; IBUPROFEN600 MG PO; PRENATAL COMPLE1 TAB PO
[2021-02-07] MEDS ORDERED: ZOLOFT25 MG PO (18:11)
[2021-02-07 18:50] LABS: BASOPHILS 0.3 % (0-2); EOSINOPHILS 0.6 % (0-7); HEMATOCRIT 37.9 % (36.0-48.0); HEMOGLOBIN 12.7 g/dL (12-16); LYMPHOCYTES 14.7 % (15-50); MCH 28.3 pg (26.0-34.0); MCHC 33.4 g/dL (31.0-37.0); MCV 84.8 fL (80.0-100.0); MEAN PLATELET VOLUME 8.1 fL (7.4-10.4); MONOCYTES 5.2 % (2-11); NEUTROPHILS 79.2 % (40-80); PLATELET COUNT 253 10x3/uL (130-400); RBC 4.47 10x6/uL (4.00-5.40)
[2021-02-07 19:04] VITALS: BP 142/94
[2021-02-07 19:12] VITALS: Ht 157.5 cm; Wt 111.4 kg
[2021-02-07 19:20] LABS: CALC OSMOLALITY 274 mosm/kg (275-300); CALCIUM 8.8 mg/dL (8.5-10.1); CARBON DIOXIDE 24.9 mmol/L (21.0-32.0); CHLORIDE - SERUM 103 mmol/L (98-107); CREATININE - SERUM 0.7 mg/dL (0.6-1.3); GLUCOSE 102 mg/dL (74-106); POTASSIUM - SERUM 3.7 mmol/L (3.5-5.1); SODIUM 138 mmol/L (136-145); UREA NITROGEN 9 mg/dL (7-18); eGFR NON AFRICAN AMERICAN > 90 mL/min (90-120)
[2021-02-07 19:27] LABS: ALBUMIN 3.5 g/dL (3.4-5.0); ALKALINE PHOSPHATASE 74 U/L (30-120); ALT (SGPT) 19 U/L (10-68); BILIRUBIN - TOTAL 0.43 mg/dL (0.2-1.3); PROTEIN - SERUM 7.6 g/dL (6.4-8.2)
[2021-02-07 19:30] LABS: HCG SERUM POSITIVE (NEGATIVE)
[2021-02-07 20:11] LABS: HCG - QUANTITATIVE (MATERNAL) 9078 mIU/mL
[2021-02-07 20:21] VITALS: BP 110/66
[2021-02-07 20:47] LABS: BILIRUBIN NEGATIVE (NEGATIVE); KETONE SMALL mg/dL (NEGATIVE); NITRITE NEGATIVE (NEGATIVE); UROBILINOGEN NORMAL mg/dL (< 2)
[2021-02-07 20:51] LABS: BACTERIA FEW HPF (NONE SEEN); SQUAMOUS EPITHELIAL 0-5 HPF (0-4); WHITE CELLS - URINE 0-5 HPF (0-4)
--- NOTE | 2021-02-07 21:13 | NUR ---
[employer] Supervisor called and said OR crew enroute. Primary nurse Mercedes platt
[2021-02-07 21:19] VITALS: BP 129/80
--- NOTE | 2021-02-07 21:25 | NUR ---
DR ONTIVEROS AT BEDSIDE. PATIENT TO GO TO OR NEXT CASE. CONSENTS SIGNED
--- NOTE | 2021-02-07 21:45 | NUR ---
ANESTHESIA HERE AND TRANSPORTED PATIENT TO OR
[2021-02-07 21:50] VITALS: BP 129/80
--- NOTE | 2021-02-07 23:10 | NUR ---
PT STATES MINIMAL PAIN. STATES CRAMPING. TORADOL GIVEN.
--- NOTE | 2021-02-07 23:36 | NUR ---
PT RECEIVED FROM RECOVERY VIA STRETCHER. PT ALERT AND ORIENTED. PIV IN LEFT HAND DC'D, BANDAID APPLIED. VSS. PERICARE DONE, PANTIES AND PADS PROVIDED.
--- NOTE | 2021-02-08 00:17 | NUR ---
ICE WATER PROVIDED
--- NOTE | 2021-02-08 01:10 | NUR ---
ICE WATER PROVIDED TO PT. DENIES OTHER NEEDS AT THIS TIME.
--- NOTE | 2021-02-08 01:50 | NUR ---
PT VOIDS 400 MLS LIGHT CLEAR YELLOW URINE.
--- NOTE | 2021-02-08 02:02 | NUR ---
PT RECEIVED DISCHARGE INSTRUCTIONS, VERBALIZES UNDERSTANDING. PT STABLE AND DISCHARGED TO HOME. OFF THE UNIT VIA WHEELCHAIR.
== END 2021-02-08 02:02 | disposition home or self-care (01) ==
LOC: D.ER 18:05 → OBSVTIME 18:45 → D.EDHOLD 18:45 → D.LD 20:09 → D.SDCHOLD 22:15 → D.LD 23:16
PROVIDERS: Family Medicine; ADMIT Obstetrics & Gynecology; ATTEND Obstetrics & Gynecology
DX: O03.4 Incomplete spontaneous abortion without complication (principal)